=== PATIENT | female | born 1985 | race Caucasian/White ===

== ENCOUNTER → 2021-07-26 | Outpatient (CLI) | payer OTHER ==
[~2021-07-26] MED LIST: ALPR0.25 PO; AMOX875T PO; CETI10TA74 PO; DIPH25CA58 PO; HYDR1TAB13 PO; NORE1TAB27 PO; OXYC1TAB15 PO
== END ==
LOC: LAB 08:40
PROVIDERS: ATTEND Obstetrics & Gynecology
DX: Z01.812 Encounter for preprocedural laboratory examination (principal); Z20.822 Contact with and (suspected) exposure to COVID-19
CPT/HCPCS: U0003; U0005

== ENCOUNTER 2021-07-27 10:33 | Day surgery (SDC) | payer OTHER ==
[~2021-07-27] VITALS: Ht 160 cm; Wt 63.6 kg
[~2021-07-27 10:33] MED LIST changes: -ALPR0.25 PO; -CETI10TA74 PO; -DIPH25CA58 PO; +HYDROmorphone 2 MG/ML VIAL IVP PRN; +IV RINGERS,LACTATED 1000ML 1,000 ML IV SCH; +MORPHINE SULFATE 2 MG/ML INJ. IVP PRN; -NORE1TAB27 PO; -OXYC1TAB15 PO; +PROCHLORPERAZINE 10 MG/2 ML VIAL. IVP PRN; +ceFAZolin SODIUM IV Push 1 GM VIAL. IVP PRN; +fentaNYL PF VIAL 100 MCG/2 ML VIAL IVP PRN
[2021-07-27 10:58] VITALS: BP 119/60
[2021-07-27] MEDS ORDERED: NORE1TAB27 PO (11:05)
[2021-07-27] MEDS ORDERED: ALPR0.25 PO (11:06)
[2021-07-27] MEDS ORDERED: CETI10TA74 PO (11:06)
[2021-07-27] MEDS ORDERED: DIPH25CA58 PO (11:06)
[2021-07-27] MEDS ORDERED: MIDAZOLAM HCL/PF 2 MG/2 ML VIAL. ONE (13:02)
[2021-07-27] MEDS ORDERED: PROPOFOL 10 MG/ML (20ML) VIAL. IV ONE (13:02)
[2021-07-27] MEDS ORDERED: LIDOCAINE 2% PF 5 ML VIAL. ONE (13:02)
[2021-07-27] MEDS ORDERED: fentaNYL PF VIAL 100 MCG/2 ML VIAL ONE (13:03)
[2021-07-27] MEDS ORDERED: FERRIC SUBSULFATE 8 ML SOL.W.APPL TP ONE (13:34)
[2021-07-27] MEDS ORDERED: LIDOCAINE 1%/EPI 1:100,000 20 ML VIAL. ONE (13:35)
[2021-07-27] MEDS ORDERED: ONDANSETRON PF 4 MG/2 ML VIAL. ONE (14:03)
[2021-07-27] MEDS ORDERED: SEVOFLURANE 31 TO 60 MINUTES. IH ONE (14:03)
[2021-07-27] MEDS ORDERED: DEXAMETHASONE SOD PHOS 4 MG/ML VIAL ONE (14:03)
--- NOTE | 2021-07-27 14:13 | PDOC4 ---
BRIEF OPERATIVE NOTE Date: Jul 27, 2021 Pre-Op Diagnosis RANDY 2 Post-Op Diagnosis Same Procedure Performed Cold Knife Cone Biopsy Surgeon Dr. Naik Anesthesia Type: General Blood Loss 5 ml Specimens Obtained anterior and posterior lip of cervix Findings cervical dysplasia Complications none Operative Note see dictation PARIS NAIK Jr, MD Jul 27, 2021 14:13
[2021-07-27] MEDS ORDERED: OXYC1TAB15 PO (14:14)
--- NOTE | 2021-07-27 14:16 | DISCH ---
DISCHARGE INSTRUCTIONS Condition on Discharge Condition on Discharge: Stable Activity After Discharge Activity Instructions for Disc: Activity as tolerated Lifting Instructions after Dis: No heavy lifting Driving Instructions after Dis: Do not drive today Diet after Discharge Diet after Discharge: Regular Contacting the DRPratima after DC Call your doctor for: Concerns you may have Follow-Up Follow up with: Dr. Naik in 2 weeks. PARIS NAIK Jr, MD Jul 27, 2021 14:16
--- NOTE | 2021-07-27 14:32 | OP ---
DATE OF SURGERY: 07/27/2021 PREOPERATIVE DIAGNOSIS: Cervical intraepithelial neoplasia 2. POSTOPERATIVE DIAGNOSIS: Cervical intraepithelial neoplasia 2. PROCEDURE: Cold knife cone biopsy. SURGEON: Bladimir Naik MD ANESTHESIA: GETA. ESTIMATED BLOOD LOSS: 5 mL. COMPLICATIONS: None. FINDINGS: Cervical dysplasia. SUMMARY: A 35-year-old with RANDY-2 on colposcopic biopsy requiring cervical cone biopsy. She was counseled on the risks, benefits and expectations and voiced clear understanding to proceed. DESCRIPTION OF PROCEDURE: The patient was taken to surgery suite and placed in dorsal lithotomy position, was prepped with Betadine solution and draped in sterile fashion. After adequate anesthesia, weighted speculum and curved Abbe placed vaginally and the anterior lip of the cervix grasped with single tooth tenaculum. The cervix was injected with 1% lidocaine with epinephrine in a circumferential manner, 2-0 Vicryl suture was placed at 3 o'clock and 9 o'clock position to help stabilize the cervix. The angled scalpel was then utilized to remove the anterior and posterior lip of the cervix. The remaining cervix was cauterized with Bovie cautery and Monsel solution for hemostasis. The single tooth tenaculum and weighted speculum were removed. The patient tolerated the procedure well and was taken to recovery room in stable condition. Sponge and needle count correct x 3. TYRONE DR: Komal TID: [id number]
[2021-07-27 14:46] VITALS: BP 112/64
--- NOTE | 2021-08-07 18:10 | PATHOLOGY ---
[facility] Accession Number: [id number] . 01 Material submitted: . cervix - CERVICAL CORE BIOPSY STITCH AT 12 O'CLOCK . 01 Clinical history: . CERVICAL DYSPLASIA CERVICAL CORE BIOPSY . 02 Diagnosis: Uterus "cervical cone biopsy": - Focal high-grade squamous intraepithelial lesion involving the transformation zone (RANDY II/moderate dysplasia), arising in a background of low-grade RAKESH (RANDY-I-mild dysplasia). - All margins negative. - Please see comment. (TADEO:[place]; 08/07/2021) [facility] 08/07/2021 1744 Local . 02 Comment: The case is seen in co-review, with consensus, by Dr. Brannon Cardenas on 08/07/2021. (TADEO:[place]; 08/07/2021) . 02 Electronically signed: . Ever Juarez MD, Pathologist NPI- [id number] . 01 Gross description: . Received in formalin labeled "Gina Mcclendon, cervical cone biopsy, stitch at 12:00" is an oriented cervical conization specimen measuring 3.0 x 2.7 x 2.7 cm. The ectocervix is wang-brown with a roughened granular area measuring 2.3 x 1.7 cm, which surrounds a slitlike cervical os. The margins are inked as follows: Ectocervical-green, endocervical-blue, deep/stromal-black. The specimen is radially sectioned and submitted as follows: A1-A3 12:00-3:00 A4-A6 3:00 to 6:00 A7-A8 6:00 to 9:00 A9-A11 9:00 to 12:00 ([facility] [place]; 07/29/2021) [facility] 07/29/2021 0949 Local . 02 Microscopic: . Immunohistochemical stain results (properly controlled): . P16: A2 - highlights squamous mucosal cells at transformation zone. A11 - negative (WILVERK:[place]; 08/07/2021) . 02 Pathologist provided ICD-10: N87.1 . 02 CPT . 375030, [id number] Specimen Comment: A courtesy copy of this report has been sent to [phone] Specimen Comment: Report sent to Performed at: 01 [facility] [address] [place] [id number] MD Brannon Cardenas MD Phone: [phone] Performed at: [address] [id number] MD Eulogio Agudelo MD Phone: [phone]
== END 2021-07-27 15:11 | disposition home or self-care (01) ==
LOC: SURG 10:33
PROVIDERS: ATTEND Obstetrics & Gynecology
DX: N87.1 Moderate cervical dysplasia (principal); N87.9 Dysplasia of cervix uteri, unspecified; F41.9 Anxiety disorder, unspecified; Z79.899 Other long term (current) drug therapy; Z98.890 Other specified postprocedural states; Z88.1 Allergy status to other antibiotic agents
CPT/HCPCS: 57520; 81025; A4930; J0690; J1100; J2405; J2704; J3010; J3490; 88307; 88342; J2250

== ENCOUNTER 2021-07-27 22:34 | Emergency (ER) | payer OTHER ==
[~2021-07-27] VITALS: Ht 160 cm; Wt 63.0 kg
[~2021-07-27 22:34] MED LIST changes: +ALPR0.25 PO; +CETI10TA74 PO; +DIPH25CA58 PO; -HYDROmorphone 2 MG/ML VIAL IVP PRN; -IV RINGERS,LACTATED 1000ML 1,000 ML IV SCH; -MORPHINE SULFATE 2 MG/ML INJ. IVP PRN; +NORE1TAB27 PO; +OXYC1TAB15 PO; -PROCHLORPERAZINE 10 MG/2 ML VIAL. IVP PRN; -ceFAZolin SODIUM IV Push 1 GM VIAL. IVP PRN; -fentaNYL PF VIAL 100 MCG/2 ML VIAL IVP PRN
[2021-07-27 23:27] VITALS: BP 136/64
[2021-07-28 00:10] LABS: BASO % 0 % (0-3); EOS % 0 % (0-3); HEMATOCRIT 35.2 % (36.0-47.0); HEMOGLOBIN 12.3 g/dL (12.0-15.5); LYMPH # 1.3 x10^3/uL (1.0-4.8); LYMPH % 15 % (24-48); MEAN CORPUSCULAR HEMOGLOBIN 31 pg (25-35); MEAN CORPUSCULAR HGB CONC 35 g/dL (31-37); MEAN CORPUSCULAR VOLUME 88 fL (79-100); MONO # 0.2 x10^3/uL (0.0-1.1); MONO % 3 % (0-9); NEUT # 7.1 x10^3/uL (1.8-7.7); NEUT % 82 % (31-73); PLATELET COUNT 272 x10^3/uL (140-400); RED BLOOD COUNT 4.01 x10^6/uL (3.50-5.40); RED CELL DISTRIBUTION WIDTH 12.5 % (11.5-14.5); WHITE BLOOD COUNT 8.7 x10^3/uL (4.0-11.0)
[2021-07-28] MEDS ORDERED: SILVER NITRATE STICK TP ONE (00:15)
[2021-07-28 00:24] LABS: CALCIUM 8.5 mg/dL (8.5-10.1); CREATININE 0.7 mg/dL (0.6-1.0); GFR 94.2; POTASSIUM 4.3 mmol/L (3.5-5.1)
--- NOTE | 2021-07-28 00:29 | PHYS DOC ---
Past Medical History Past Medical History: No Pertinent History Past Surgical History: Other Additional Past Surgical Histo: WISDOM TEETH Alcohol Use: None Drug Use: None General Adult EDM: Chief Complaint: POST-OP PROBLEM HPI: HPI: Is a 35-year-old female who presents to the emergency department for vaginal b leeding. Patient had a cone biopsy performed today by Dr. Gutierrez. She reports that she is having bright red vaginal bleeding with clots. She states that she is saturating at least a pad an hour. Patient reports some cramping. She was discharged with pain medication. She denies any chest pain, shortness of breath, vomiting, fevers. Her vital signs are stable. Review of Systems: Review of Systems: Constitutional: See HPI Respiratory: See HPI Cardiovascular: See HPI GI: See HPI : See HPI Neurologic: Reporting lightheadedness but states it could be because of the pain medication she is on Heart Score: C/O Chest Pain: N/A Risk Factors: Risk Factors: DM, Current or recent (<one month) smoker, HTN, HLP, family history of CAD, obesity. Risk Scores: Score 0 - 3: 2.5% MACE over next 6 weeks - Discharge Home Score 4 - 6: 20.3% MACE over next 6 weeks - Admit for Clinical Observation Score 7 - 10: 72.7% MACE over next 6 weeks - Early Invasive Strategies Current Medications: Current Medications Medications (Trade) Dose Ordered Sig/Antonio Start Time Stop Time Status Last Admin Dose Admin Silver Nitrate/ Potassium Nitrate 3 each 1X ONCE 07/28/21 00:15 07/28/21 00:16 Allergies: Allergies: Allergies Coded Allergies Type Severity Reaction Last Updated Verified tetracycline Allergy Intermediate NAUSEA/VOMITING 07/25/21 Yes Physical Exam: PE: Constitutional: Well developed, well nourished, no acute distress, non-toxic appearance. [] HENT: Normocephalic, atraumatic, bilateral external ears normal, oropharynx moist, no oral exudates, nose normal. [] Eyes: PERRL, EOMI, conjunctiva normal, no discharge. [] Neck: Normal range of motion, no tenderness, supple, no stridor. [] Cardiovascular:Heart rate regular rhythm, no murmur [] Lungs & Thorax: Bilateral breath sounds clear to auscultation [] Abdomen: Bowel sounds normal, soft, no tenderness, no masses, no pulsatile masses. [] Skin: Warm, dry, no erythema, no rash. [] Back: Normal range of motion Extremities: No tenderness, no cyanosis, no clubbing, ROM intact, no edema. [] Neurologic: Alert and oriented X 3, normal motor function, normal sensory function, no focal deficits noted. [] Psychologic: Affect normal, judgement normal, mood normal. [] Pelvic exam: External genitalia: Normal appearing Internal genitalia: Dark red blood noted with clots, no active bleeding noted Current Patient Data: Labs: Laboratory Tests Test 07/28/21 00:05 White Blood Count 8.7 x10^3/uL Red Blood Count 4.01 x10^6/uL Hemoglobin 12.3 g/dL Hematocrit 35.2 % Mean Corpuscular Volume 88 fL Mean Corpuscular Hemoglobin 31 pg Mean Corpuscular Hemoglobin Concent 35 g/dL Red Cell Distribution Width 12.5 % Platelet Count 272 x10^3/uL Neutrophils (%) (Auto) 82 % Lymphocytes (%) (Auto) 15 % Monocytes (%) (Auto) 3 % Eosinophils (%) (Auto) 0 % Basophils (%) (Auto) 0 % Neutrophils # (Auto) 7.1 x10^3/uL Lymphocytes # (Auto) 1.3 x10^3/uL Monocytes # (Auto) 0.2 x10^3/uL Eosinophils # (Auto) 0.0 x10^3/uL Basophils # (Auto) 0.0 x10^3/uL Sodium Level 142 mmol/L Potassium Level 4.3 mmol/L Chloride Level 105 mmol/L Carbon Dioxide Level 26 mmol/L Anion Gap 11 Blood Urea Nitrogen 10 mg/dL Creatinine 0.7 mg/dL Estimated GFR (Cockcroft-Gault) 94.2 BUN/Creatinine Ratio 14 Glucose Level 132 mg/dL Calcium Level 8.5 mg/dL Total Bilirubin 0.2 mg/dL Aspartate Amino Transf (AST/SGOT) 16 U/L Alanine Aminotransferase (ALT/SGPT) 20 U/L Alkaline Phosphatase 41 U/L Total Protein 6.4 g/dL Albumin 3.1 g/dL Albumin/Globulin Ratio 0.9 Current Medications Medications (Trade) Dose Ordered Sig/Antonio Route PRN Reason Start Time Stop Time Status Last Admin Dose Admin Silver Nitrate/ Potassium Nitrate 3 each 1X ONCE TP 07/28/21 00:15 07/28/21 00:16 DC Vital Signs: Vital Signs Date Time Temp Pulse Resp B/P (MAP) Pulse Ox O2 Delivery O2 Flow Rate FiO2 07/27/21 23:27 97.9 64 18 136/64 (88) 97 Room Air 97.9 EKG: EKG: [] Radiology/Procedures: Radiology/Procedures: [] Course & Med Decision Making: Course & Med Decision Making Pertinent Labs and Imaging studies reviewed. (See chart for details) [] Patient presents to the emergency department for vaginal bleeding post cone biopsy performed by Dr. Naik today. Patient reports that she is saturating 1 pad an hour. She reports it is bright red with clots. A pelvic exam was performed to try to identify any active bleeding. Dr. Carter assisted procedure. Patient was noted to have dark red bleeding with a significant amount of clots in her vaginal vault. No active bleeding identified. Lab work performed that was unremarkable. Patient does not have any significant anemia. Her VSS. I contacted Dr. Naik to advise if there is no active bleeding to have patient perform bed rest and follow-up with him in the office. Patient advised to perform bedrest, to continue taking the pain medication that she was prescribed and follow-up with him tomorrow. I discussed with patient all findings and diagnostic testing as well as the need to follow-up with PCP for further evaluation and treatment or return to the ER if any new or worsening symptoms. Strict return precautions were also discussed at length. Patient voiced understanding and agreement with the plan. Patient is hemodynamically stable at the time of disposition. Nishant Disclaimer: Nishant Disclaimer: This electronic medical record was generated, in whole or in part, using a voice recognition dictation system. Departure Departure Impression: Primary Impression: Vaginal bleeding Disposition: HOME / SELF CARE / HOMELESS Condition: GOOD Referrals: ESTELLE BOOKER APRN (PCP) Patient Instructions: Postsurgical Bleeding Additional Instructions: You were seen in the emergency department for vaginal bleeding following a cone biopsy. Your blood work did not show any significant anemia requiring you to have a blood transfusion. A pelvic exam was performed and there was no active bleeding visualized. Spoke to Dr. Naik who advised you to perform bedrest and follow-up with him in the office. I would contact him today to set up a follow- up appointment. For your pain continue taking the medication that was previously prescribed to you. Return to the emergency department if you develop worsening of your vaginal bleeding, lightheadedness, syncope, chest pain, shortness of breath, intractable nausea or vomiting, high fevers refractory to treatment. KALYAN JOHNSON APRN Jul 28, 2021 00:29
[2021-07-28 00:31] LABS: ALBUMIN 3.1 g/dL (3.4-5.0); ALBUMIN/GLOBULIN RATIO 0.9 (1.0-1.7); TOTAL BILIRUBIN 0.2 mg/dL (0.2-1.0); TOTAL PROTEIN 6.4 g/dL (6.4-8.2)
== END 2021-07-28 01:00 | disposition home or self-care (01) ==
LOC: ER 22:34
DX: N93.9 Abnormal uterine and vaginal bleeding, unspecified (principal); R42 Dizziness and giddiness; Z88.1 Allergy status to other antibiotic agents
CPT/HCPCS: 36415; 80053; 85025; 99284